=== PATIENT | female | born 1990 | race Caucasian/White ===

== ENCOUNTER 2023-10-26 08:32 | Day surgery (SDC) | payer MEDICAID ==
[~2023-10-26 08:32] MED LIST: Midazolam 1 MG/ML 2 ML SDV ONE; Propofol 200 MG/20 ML SDV ONE; fentaNYL 50 MCG/ML SDV ONE
[2023-10-26] MEDS: Sodium Chloride 0.9% 1,000 ML IV SCH (09:24)
[2023-10-26] MEDS ORDERED: Propofol 200 MG/20 ML SDV ONE (09:51)
== END 2023-10-26 11:42 | disposition home or self-care (01) ==
LOC: JP.SDS 08:32
PROVIDERS: ATTEND Surgery
DX: Z12.11 Encounter for screening for malignant neoplasm of colon (principal); D12.6 Benign neoplasm of colon, unspecified; K57.30 Diverticulosis of large intestine without perforation or abscess without bleeding
CPT/HCPCS: 00811; 45385; 81025; 88305; J2250; J2704; J3010; J7030